=== PATIENT | female | born 1995 | race Caucasian/White ===

== ENCOUNTER → 2019-10-25 | Emergency (ER) | payer OTHER ==
[~2019-10-25] VITALS: Ht 162.6 cm; Wt 108.9 kg
== END | disposition home or self-care (01) ==
LOC: ER 00:17
DX: R55 Syncope and collapse (principal); R50.9 Fever, unspecified; Z03.818 Encounter for observation for suspected exposure to other biological agents ruled out; E07.89 Other specified disorders of thyroid

== ENCOUNTER → 2022-08-02 | Emergency (ER) | payer OTHER ==
[~2022-08-02] VITALS: Ht 162.6 cm; Wt 108.0 kg
== END | disposition home or self-care (01) ==
LOC: ER 15:20
DX: R51.9 Headache, unspecified (principal)